=== PATIENT | male | born 1955 | race Two or more races ===

== ENCOUNTER 2020-05-16 11:26 | Emergency (ER) | payer MEDICARE ==
[~2020-05-16] VITALS: Ht 175.3 cm; Wt 75.0 kg
[2020-05-16 12:37] LABS: BASOPHILS % 0.5 % (0.0-2.0); EOSINOPHILS % 1.6 % (0.0-5.0); HEMATOCRIT. 38.6 % (42.0-52.0); HEMOGLOBIN. 13.1 g/dL (14.0-18.0); LYMPHOCYTES % 16.5 % (20.0-50.0); MEAN CORPUSCULAR HEMOGLOBIN 31.6 pg (28.0-32.0); MEAN CORPUSCULAR VOLUME 93.1 fL (80.0-94.0); MEAN PLATELET VOLUME 7.8 fl (7.4-10.4); MONOCYTES % 8.9 % (2.0-8.0); NEUTROPHILS % 72.5 % (40.0-76.0); PLATELET 174 x1000/uL (130-400); RED BLOOD CELL COUNT 4.14 mill/uL (4.7-6.1); RED CELL DISTRIBUTION WIDTH 13.2 % (11.6-14.6)
[2020-05-16] MEDS ORDERED: SODIUM CHLORIDE 0.9% 500 ML IV ONE (12:45)
[2020-05-16 12:47] LABS: CHLORIDE 105 mEq/L (98-107)
[2020-05-16 15:30] VITALS: BP 138/83
== END 2020-05-16 15:55 | disposition home or self-care (01) ==
LOC: ER 11:26
DX: U07.1 COVID-19 (principal)
CPT/HCPCS: 36415; 71045; 80053; 83880; 84484; 85025; 87635; 93005; 96360; 99285; J7030